=== PATIENT | female | born 1930 | race Caucasian/White ===

== ENCOUNTER 2016-09-02 12:21 | Observation (INO) | payer BC, OTHER ==
--- NOTE | 2016-09-02 12:50 | UCPHY ---
H & P Patient Type: New Chief Complaint Nursing Narrative: Congested nose,"itchy eyes and ears" x1wk has increased last 2 days as well as SOB. Pt. also c/o cough x1-1.5wks ago. Denies fever/chills Time Seen by Provider: 09/02/16 12:47 HPI/ROS: 86-year-old female presents with her daughter a retired nurse with complaints of inside itchy ears, swelling around her eyes severe nasal congestion with a history of nasal polyps, cough and shortness of breath. No fevers or chills. Review of systems As per HPI, itchy ears cold symptoms nasal congestion swelling around her eyes General no fever no chills no weakness HEENT no eye pain no eye discharge. No eye redness, positive swelling around her eyes, positive itchy ears no sore throat Respiratory positive cough, positive shortness of breath Cardiac no chest pain, no peripheral edema GI no abdominal pain, no diarrhea, no constipation, no nausea, no vomiting no flank pain, no hematuria, no dysuria Musculoskeletal no myalgias, no joint pain Heme no easy bruising, no easy bleeding Endo no polyuria, no polydipsia Skin positive rashes, positive pruritus Neuro no syncope, no dizziness, no headaches Psych is no suicidal ideation, no homicidal ideation Source: Patient, Family Exam Limitations: Clinical condition - Personal History Current Tetanus/Diphtheria Vaccine: Unsure - Medical/Surgical History Hx Asthma: Yes Hx Chronic Respiratory Disease: Yes Hx Diabetes: No Hx Cardiac Disease: Yes Hx Renal Disease: Yes Hx Cirrhosis: No Hx Alcoholism: No Hx HIV/AIDS: No Hx Splenectomy or Spleen Trauma: No Other PMH: Med hx-kidney abnormal but has not increased,htn,panceatitis,GERD. SUrg-marycarmen,bilat knees,hyst,appy - Family History Significant Family History: COPD - Social History Smoking Status: Former smoker Alcohol Use: None Drug Use: None - Physical Exam Exam: 86-year-old female alert and oriented in no acute distress nontoxic appearance, afebrile Some pursed lip breathing This saturation on 2 L nasal cannula in mid 90s Atraumatic normocephalic Extraocular muscles intact Anicteric Periorbital erythema and edema bilaterally, mild tenderness to palpation of bilateral maxillary sinuses Nares completely congested with yellowish mucus bilaterally Oropharynx-dry mucosa, mild erythema no swelling no uvular edema and no exudate Lungs wheeze left upper lobe, otherwise clear to auscultation Heart regular rate and rhythm Abdomen nondistended bowel sounds present soft Extremities no cyanosis clubbing or edema, no calf tenderness Neuro alert, no focal deficits noted Constitutional: Initial Vital Signs Temperature (C) 36.4 C 09/02/16 12:27 Heart Rate 100 09/02/16 12:27 Respiratory Rate 20 09/02/16 12:27 Blood Pressure 149/66 H 09/02/16 12:27 O2 Sat (%) 83 L 09/02/16 12:27 O2 Delivery Mode Nasal Cannula O2 (L/minute) 2 Allergies/Adverse Reactions: oxycodone HCl [From Percocet] Allergy (Severe, Verified 09/02/16 12:27) Other-Enter Comments amoxicillin [Amoxicillin] Allergy (Unknown, Verified 09/02/16 12:27) metoclopramide HCl [From Reglan] Allergy (Verified 09/02/16 12:27) Other-Enter Comments Home Medications: Medication Instructions Recorded Acetaminophen [Tylenol 8 Hour] 650 mg PO Q6H PRN 11/20/12 Albuterol [Proventil Inhaler (RX)] 1 - 2 puffs IH Q4H PRN 11/20/12 Coenzyme Q10 [Co Q-10 30 mg (OTC)] 30 mg PO HS 11/20/12 Fluticasone Nasal [Flonase Nasal 2 sprays EACH[place]ARE DAILY 11/20/12 [place] (RX)] Md Riojas 11/2011/20/12 Multivit with Calcium,Iron,Min 1 each PO DAILY 11/20/12 [Tab A Irene] Paroxetine HCl [Paxil] 20 mg PO DAILY 11/20/12 Slicer Machine Operator Completed 11/20/12 11/20/12 Carvedilol 09/02/16 Clonidine 09/02/16 Medical Decision Making - Diagnostics EKG Interpretation: EKG done at 3:39 p.m. on September 02, 2016, normal sinus rhythm, no ectopy no ischemic changes Imaging: EKG normal sinus rhythm, no ectopy no ischemic changes done at 3:39 p.m. on September 02, 2016 Chest x-ray negative for pneumonia CT sinuses positive for pansinusitis no obvious erosions ED Course/Re-evaluation: Patient seen and evaluated for multiple complaints, itchy ears, swelling around her eyes , cold symptoms difficulty breathing through her nose, shortness of breath, cough. Initial room air saturation was in the low 80s, improved to low 90s to mid 90s on 2 L nasal cannula. She uses home oxygen 1.5 L nasal cannula while she sleeps. Patient was given a DuoNeb and Solu-Medrol 125 mg additionally she was given famotidine 20 mg( for possible allergic component). ER studies CT scan sinuses positive for pansinusitis Chest x-ray negative, no pneumonia CBC within normal limits INR normal Creatinine at baseline 1.6 with GFR 30 Influenza negative Rapid strep negative D-dimer 4.61 Patient with shortness of breath likely multifactorial in origin, patient with a history of COPD, given nebulizer and Solu-Medrol with improvement in wheezing. Patient also with a history of significant nasal congestion and pansinusitis may be contributing to his sensation of shortness of breath. However patient has an elevated D-dimer of 4.61 has limited mobility and will need to have a pulmonary embolus ruled out as a possible contributing factor to her shortness of breath. She is unable to get a CT scan with contrast secondary to her baseline creatinine of 1.6 with a GFR of 30. I discussed this case with Dr. Hunt at [facility] ER She will go to [facility] to have a V/Q scan if they are unable to get a V/Q scan today she might need to be admitted for observation and have a V/Q scan tomorrow. 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5-13.0) Eos % (Auto) 3.2 % (0.6-7.6) Baso % (Auto) 0.4 % (0.3-1.7) Nucleat RBC Rel Count 0.0 % (0.0-0.2) Absolute Neuts (auto) 6.26 10^3/uL (1.70-6.50) Absolute Lymphs (auto) 1.28 10^3/uL (1.00-3.00) Absolute Monos (auto) 0.51 10^3/uL (0.30-0.80) Absolute Eos (auto) 0.27 10^3/uL (0.03-0.40) Absolute Basos (auto) 0.03 10^3/uL (0.02-0.10) Absolute Nucleated RBC 0.00 10^3/uL (0-0.01) Immature Gran % 0.5 % (0.0-1.1) Immature Gran # 0.04 10^3/uL (0.00-0.10) PT 13.7 SEC (12.0-15.0) INR 1.07 (0.83-1.16) APTT 38.8 H SEC (23.0-38.0) D-Dimer 4.61 H ug/mLFEU (0.00-0.50) Sodium 131 L mEq/L (134-144) Potassium 4.2 mEq/L (3.5-5.2) Chloride 99 mEq/L (97-110) Carbon Dioxide 23 mEq/l (22-31) Anion Gap 9 mEq/L (8-16) BUN 20 mg/dL (7-23) Creatinine 1.6 H mg/dL (0.6-1.0) Estimated GFR 30 Glucose 144 H mg/dL (70-100) Calcium 9.3 mg/dL (8.5-10.4) Total Bilirubin 0.9 mg/dL (0.1-1.4) AST 25 IU/L (14-46) ALT 21 IU/L (9-52) Alkaline Phosphatase 63 IU/L (38-126) Troponin I 0.016 ng/mL (0-0.034) Total Protein 5.5 L g/dL (6.3-8.2) Albumin 3.1 L g/dL (3.5-5.0) Influenza Typ A,B (DFA) NEGATIVE FOR FLU (NEGATIVE) Group A Strep Screen NEGATIVE (NEGATIVE) Group A Strep DNA Pending Medications Given: Discontinued Medications Albuterol/Ipratropium (Duoneb) 3 ml IH EDNOW ONE Stop: 09/02/16 13:21 Last Admin: 09/02/16 13:39 Dose: 3 ml Famotidine (Pepcid) 20 mg IVP EDNOW ONE Stop: 09/02/16 13:39 Last Admin: 09/02/16 13:40 Dose: 20 mg Methylprednisolone Sodium Succinate (Solu-Medrol) 125 mg IVP EDNOW ONE Stop: 09/02/16 13:22 Last Admin: 09/02/16 13:39 Dose: 125 mg Departure - Departure Disposition: [facility] ER Clinical Impression: COPD exacerbation, Acute pansinusitis, Positive D-dimer, Hypertension Condition: Good Referrals: Betty Hanks MD [Primary Care Provider] - As per Instructions - PQRS PQRS Measurement: 134: Depression screening and followup, PRIME MD-PHQ2 (12 years and older) Over the last 2 weeks, how often have you been bothered by any of the following problems? 1. Feeling down, depressed, or hopeless? 2. Little interest or pleasure in doing things? Patient answered no to both 1 and 2 130: Documentation of medications. Reviewed all patient medications, doses, route and frequency. 226: Do you smoke? No. 47: 65 and older: Advanced care planning. Patient designates surrogate decision maker as spouse.. [Patient has advanced directive.] 51: 18 years old and older with diagnosis of COPD, spirometry performance. Patient with history of COPD, spirometry not available 52: 18 years old and older with COPD and symptoms of COPD or FEV1<60% predicted prescribed a B Agonist. [Spirometry not performed; equipment not available.]
[2016-09-02] MEDS ORDERED: IPRATROPIUM/ALBUTEROL 3 ML DEYVIAL IH ONE (13:20)
[2016-09-02] MEDS ORDERED: methylPREDNISolone SOD SUCC 125 MG/2 ML VIAL IVP ONE (13:21)
[2016-09-02] MEDS ORDERED: FAMOTIDINE 20 MG/2 ML SDV IVP ONE (13:38)
[2016-09-02 13:44] LABS: % IMMATURE GRANULYOCYTES 0.5 % (0.0-1.1); ABSOLUTE IMMATURE GRANULOCYTES 0.04 10^3/uL (0.00-0.10); ADD DIFF? NO; ADD MORPH? NO; ADD SCAN? NO; ATYPICAL LYMPHOCYTE FLAG 0 (0-99); FRAGMENT RBC FLAG 0 (0-99); HEMOGLOBIN 13.7 g/dL (12.6-16.3); LEFT SHIFT FLG 0 (0-99); LIPEMIA HEMOLYSIS FLAG 90 (0-99); MEAN CELL HEMOGLOBIN 31.1 pg (27.9-34.1); MEAN CELL HEMOGLOBIN CONCENTR. 34.3 g/dL (32.4-36.7); MEAN CELL VOLUME 90.9 fL (81.5-99.8); PLATELET CLUMPS FLAG 0 (0-99); PLATELET COUNT 158 10^3/uL (150-400); RED CELL DISTRIBUTION WIDTH 13.6 % (11.5-15.2)
[2016-09-02 13:56] LABS: INR 1.07 (0.83-1.16); PROTIME(PATIENT) 13.7 SEC (12.0-15.0)
[2016-09-02 13:57] LABS: APTT 38.8 SEC (23.0-38.0)
[2016-09-02 14:06] LABS: ALBUMIN 3.1 g/dL (3.5-5.0); BILIRUBIN,TOTAL 0.9 mg/dL (0.1-1.4); CALCIUM 9.3 mg/dL (8.5-10.4); CREATININE 1.6 mg/dL (0.6-1.0); POTASSIUM 4.2 mEq/L (3.5-5.2); TOTAL PROTEIN 5.5 g/dL (6.3-8.2)
[2016-09-02 14:12] LABS: TROPONIN I 0.016 ng/mL (0-0.034)
--- NOTE | 2016-09-02 14:53 | DX ---
Chest PA and lateral HISTORY: Cough. FINDINGS: Compare 2013 and 2009. Heart size is normal. Lungs are free of infiltrate. No pleural effus ion. No pneumothorax. No thoracic vertebral compression fracture. Fusion hardware is partially glimps ed in the lower lumbar spine. IMPRESSION: No acute cardiopulmonary features. Negative for pneumonia.
--- NOTE | 2016-09-02 15:27 | CT ---
Unenhanced CT Scan of the Paranasal Sinuses Clinical history: 86-year-old female with bilateral eye swelling, a cough, and congestion for one wee k with known nasal polyps. TECHNIQUE: A multidetector unenhanced helical CT scan was obtained from the level of the frontal sinu ses caudally to the maxillary alveolar ridge, with images reformatted at 2.50 and 0.63 mm increments, and reviewed at a variety of window and level settings. Parasagittal and paracoronal reconstructed i mages are reviewed on the workstation. The DFOV is 17.2 cm. A dose reduction protocol was used. COMPARISON STUDY: None. FINDINGS: There is complete opacification of the frontal, ethmoid, and maxillary sinuses, with near-c omplete opacification of the sphenoid sinuses. There is no convincing osseous erosion. There is near- complete nasal turbinate congestion with some inferior nasal cavity mucosal thickening. The nasal sep blanquita remains midline. The mastoids still remain patent. Each globe is intact, and the retrobulbar intr a- and extraconal fat appear normal. There is mural atherosclerotic calcification of the cavernous ca rotid arteries. IMPRESSION: Severe pansinusitis. Results were discussed with Dr. Melissa Corrales. A Document Only message has been documented for Melissa Corrales MD in the [facility] Result system on 09/02/2016 15:00, Message ID [id number].
--- NOTE | 2016-09-02 15:41 | CPEKG ---
Heart Rate: 79 RR Interval: 759 P-R Interval: 196 QRSD Interval: 88 QT Interval: 384 QTC Interval: 441 P [place]: 49 QRS [place]: 9 T Wave [place]: 52 EKG Severity - NORMAL ECG - EKG Impression: SINUS RHYTHM Electronically Signed By: Shilo Marie 04-Sep-2016 13:11:09
--- NOTE | 2016-09-02 17:18 | EDPHY ---
H & P Time Seen by Provider: 09/02/16 12:47 - Personal History Current Tetanus/Diphtheria Vaccine: Unsure - Medical/Surgical History Hx Asthma: Yes Hx Chronic Respiratory Disease: Yes Hx Diabetes: No Hx Cardiac Disease: Yes Hx Renal Disease: Yes Hx Cirrhosis: No Hx Alcoholism: No Hx HIV/AIDS: No Hx Splenectomy or Spleen Trauma: No Other PMH: Med hx-kidney abnormal but has not increased,htn,panceatitis,GERD. SUrg-marycarmen,bilat knees,hyst,appy - Family History Significant Family History: COPD - Social History Smoking Status: Former smoker Constitutional: Initial Vital Signs Temperature (C) 36.4 C 09/02/16 12:27 Heart Rate 100 09/02/16 12:27 Respiratory Rate 20 09/02/16 12:27 Blood Pressure 149/66 H 09/02/16 12:27 O2 Sat (%) 83 L 09/02/16 12:27 O2 Delivery Mode Room Air O2 (L/minute) 2 Allergies/Adverse Reactions: oxycodone HCl [From Percocet] Allergy (Severe, Verified 09/02/16 12:27) Other-Enter Comments amoxicillin [Amoxicillin] Allergy (Unknown, Verified 09/02/16 12:27) metoclopramide HCl [From Reglan] Allergy (Verified 09/02/16 12:27) Other-Enter Comments Home Medications: Medication Instructions Recorded Acetaminophen [Tylenol 8 Hour] 650 mg PO Q6H PRN 11/20/12 Albuterol [Proventil Inhaler (RX)] 1 - 2 puffs IH Q4H PRN 11/20/12 Coenzyme Q10 [Co Q-10 30 mg (OTC)] 30 mg PO HS 11/20/12 Fluticasone Nasal [Flonase Nasal 2 sprays EACHNARE DAILY 11/20/12 [place] (RX)] Md Riojas 11/2011/20/12 Multivit with Calcium,Iron,Min 1 each PO DAILY 11/20/12 [Tab A Irene] Paroxetine HCl [Paxil] 20 mg PO DAILY 11/20/12 Physicians And Surgeons Completed 11/20/12 11/20/12 Carvedilol 09/02/16 Clonidine 09/02/16 Medical Decision Making ED Course/Re-evaluation: CHIEF COMPLAINT: Sent from [facility] [place]. HISTORY OF PRESENT ILLNESS: The patient is an 86 year old female sent here from [facility] with chest pain and shortness of breath. The patient had an elevated d- dimer and elevated creatinine. She was sent here to have a VQ scan. REVIEW OF SYSTEMS: Constitutional: No fever, no chills or rigors, no recent illness. Eyes: No visual changes. ENT: No sore throat, no difficulty swallowing, no swollen glands. Respiratory: No cough, no shortness of breath. Cardiac: No chest pain. Gastrointestinal: No nausea, vomiting, or diarrhea, no abdominal pain, no black stools Genitourinary: No hematuria, no problems urinating. Musculoskeletal: No calf or leg pain, no neck or back pain, no leg or ankle swelling. Skin: No rashes. Neurological: No headache, no tingling in hands or feet, no muscle spasms. Psychiatric: No anxiety or depression. PHYSICAL EXAM: General Appearance: Alert, well hydrated, appropriate, and non-toxic appearing. Head: Atraumatic without scalp tenderness or obvious injury Eyes: Pupils equal, round, reactive to light and accommodation, EOMI, no trauma , no injection. Ears: Clear bilaterally, no perforation, normal landmarks Nose: Atraumatic, no rhinorrhea, clear. Throat: There is no erythema or exudates, no lesions, normal tonsils, mucus membranes moist. Neck: Supple, 2+ carotid upstroke, non-tender, no lymphadenopathy. Respiratory: No retractions, no distress, no wheezes, and no accessory muscle use. Lungs are clear to auscultation bilaterally. Cardiovascular: Regular rate and rhythm, no murmurs, rubs, or gallops. Bilateral carotid, radial, dorsalis pedis, and posterior tibial pulses intact. Good capillary refill all extremities. Gastrointestinal: Abdomen is soft, non-tender, non-distended, no masses, no rebound, no guarding, no peritoneal signs. Musculoskeletal: Normal active ROM of all extremities, atraumatic. Neurological: Alert, appropriate, and interactive. The patient has normal DTRs and non-focal cranial nerves, motor, sensory, and cerebellar exam. Skin: No rashes, good turgor, no nodules on palpation. MEDICAL DECISION MAKING: The patient was sent here from [facility] with chest pain and shortness of breath. She had an elevated d-dimer of 4.6 and creatinine of 1.6. I discussed with Dr. Corrales, although she is requesting a VQ todd there is no VQ scan available and therefore will admit the patient to the hospitalist. The patient will be admitted to Dr. Poole with VQ scan scheduled for tomorrow morning. - Data Points Laboratory Results: Laboratory Results 09/02/16 13:40 09/02/16 13:40 09/02/16 09/02/16 09/02/16 Unknown 14:28 13:40 WBC 8.39 10^3/uL (3.80-9.50) RBC 4.40 10^6/uL (4.18-5.33) Hgb 13.7 g/dL (12.6-16.3) Hct 40.0 % (38.0-47.0) MCV 90.9 fL (81.5-99.8) MCH 31.1 pg (27.9-34.1) MCHC 34.3 g/dL (32.4-36.7) RDW 13.6 % (11.5-15.2) Plt Count 158 10^3/uL (150-400) MPV 9.0 fL (8.7-11.7) Neut % (Auto) 74.5 H % (39.3-74.2) Lymph % (Auto) 15.3 % (15.0-45.0) [place] % (Auto) 6.1 % (4.5-13.0) Eos % (Auto) 3.2 % (0.6-7.6) Baso % (Auto) 0.4 % (0.3-1.7) Nucleat RBC Rel Count 0.0 % (0.0-0.2) Absolute Neuts (auto) 6.26 10^3/uL (1.70-6.50) Absolute Lymphs (auto) 1.28 10^3/uL (1.00-3.00) Absolute Monos (auto) 0.51 10^3/uL (0.30-0.80) Absolute Eos (auto) 0.27 10^3/uL (0.03-0.40) Absolute Basos (auto) 0.03 10^3/uL (0.02-0.10) Absolute Nucleated RBC 0.00 10^3/uL (0-0.01) Immature Gran % 0.5 % (0.0-1.1) Immature Gran # 0.04 10^3/uL (0.00-0.10) PT 13.7 SEC (12.0-15.0) INR 1.07 (0.83-1.16) APTT 38.8 H SEC (23.0-38.0) D-Dimer 4.61 H ug/mLFEU (0.00-0.50) Sodium 131 L mEq/L (134-144) Potassium 4.2 mEq/L (3.5-5.2) Chloride 99 mEq/L (97-110) Carbon Dioxide 23 mEq/l (22-31) Anion Gap 9 mEq/L (8-16) BUN 20 mg/dL (7-23) Creatinine 1.6 H mg/dL (0.6-1.0) Estimated GFR 30 Glucose 144 H mg/dL (70-100) Calcium 9.3 mg/dL (8.5-10.4) Total Bilirubin 0.9 mg/dL (0.1-1.4) AST 25 IU/L (14-46) ALT 21 IU/L (9-52) Alkaline Phosphatase 63 IU/L (38-126) Troponin I 0.016 ng/mL (0-0.034) Total Protein 5.5 L g/dL (6.3-8.2) Albumin 3.1 L g/dL (3.5-5.0) Influenza Typ A,B (DFA) NEGATIVE FOR FLU (NEGATIVE) Group A Strep Screen NEGATIVE (NEGATIVE) Group A Strep DNA Pending Medications Given: Discontinued Medications Albuterol/Ipratropium (Duoneb) 3 ml IH EDNOW ONE Stop: 09/02/16 13:21 Last Admin: 09/02/16 13:39 Dose: 3 ml Famotidine (Pepcid) 20 mg IVP EDNOW ONE Stop: 09/02/16 13:39 Last Admin: 09/02/16 13:40 Dose: 20 mg Methylprednisolone Sodium Succinate (Solu-Medrol) 125 mg IVP EDNOW ONE Stop: 09/02/16 13:22 Last Admin: 09/02/16 13:39 Dose: 125 mg Departure - Departure Disposition: [facility] Clinical Impression: Shortness of breath Condition: Good Referrals: Betty Hanks MD [Primary Care Provider] - As per Instructions Report Scribed for: Seymour Hunt Report Scribed by: Jenni Lind Date of Report: 09/02/16 Time of Report: 17:22
[2016-09-02] MEDS ORDERED: ONDANSETRON 4 MG/2 ML VIAL IVP PRN (17:38)
[2016-09-02] MEDS ORDERED: ACETAMINOPHEN 325 MG TAB PO PRN (17:38)
[2016-09-02] MEDS ORDERED: ONDANSETRON DISINTEGRATING 4 MG TAB PO PRN (17:38)
[2016-09-02] MEDS ORDERED: ALBUTEROL 3 ML DEYVIAL IH PRN (17:38)
[2016-09-02] MEDS ORDERED: NS 1,000 ML IV SCH (17:45)
[2016-09-02] MEDS ORDERED: ALBUTEROL 60 PUFFS/8 GM MDI IH PRN (19:56)
[2016-09-02] MEDS ORDERED: diphenhydrAMINE 25 MG CAP PO PRN (19:56)
[2016-09-02] MEDS: IPRATROPIUM/ALBUTEROL 3 ML DEYVIAL IH SCH ×2 (20:34→21:43)
[2016-09-02] MEDS ORDERED: traZODone 100 MG TAB PO SCH (21:00)
[2016-09-02] MEDS ORDERED: ATORVASTATIN CALCIUM 20 MG TAB PO SCH (21:00)
[2016-09-02] MEDS ORDERED: TIOTROPIUM INHALER 18 MCG/DOSE 5 DOSE/MDI IH SCH (21:00)
[2016-09-02] MEDS ORDERED: ZOLPIDEM TARTRATE 5 MG TAB PO SCH (21:00)
[2016-09-02] MEDS: CARVEDILOL 3.125 MG TAB PO SCH (21:21)
[2016-09-02] MEDS ORDERED: HEPARIN 5,000 UNIT/0.5 ML SYR SC SCH (22:00)
[2016-09-02] MEDS: FLUTICASONE/SALMETER 100/50MCG DISKUS IH SCH (22:17)
--- NOTE | 2016-09-02 22:30 | PDGENHP ---
History and Physical - Chief Complaint Acute shortness of breath - History of Present Illness HPI: 86-year-old female presenting with acute shortness of breath characterized as getting easily winded with associated sinus congestion, nonproductive cough, pruritus of her eyes and ears. Onset of symptoms was approximately 1 week ago, and duration has been persistent and worsening over the most recent past 2 days. Patient reports that her similar is are similar in character to her chronic sinusitis which is generally treated with a prednisone 20 mg daily as well as ciprofloxacin. The patient her family reports that her sinus infections are secondary to her chronic nasal polyps which are almost completely obstructive. The patient's ear nose and throat physician has advised her not to undergo surgery given her significant surgical risks at her age. The patient reports that her shortness of breath is usually alleviated by supplemental oxygen which she regularly wears at night, but in the setting of her sinus congestion, the patient does not believe that her nasal cannula oxygen is affectively working. She otherwise denies any overt chest pain, denies any lower extremity edema, denies any nausea vomiting or diarrhea. She has otherwise been taking all of her home medications, but she has not been initiated on steroids or antibiotics yet. History Information - Allergies/Home Medication List Allergies/Adverse Reactions: oxycodone HCl [From Percocet] Allergy (Severe, Verified 09/02/16 18:08) Other-Enter Comments amoxicillin [Amoxicillin] Allergy (Unknown, Verified 09/02/16 18:08) acetaminophen [From Percocet] Allergy (Verified 09/02/16 22:10) Other-Enter Comments metoclopramide HCl [From Reglan] Allergy (Verified 09/02/16 12:27) Other-Enter Comments Home Medications: Albuterol [Proventil Inhaler (RX)] 1 - 2 puffs IH Q4H PRN 11/20/12 [Last Taken Unknown] Fluticasone Nasal [Flonase Nasal [place] (RX)] 2 sprays EACHNARE DAILY 11/20/12 [ Last Taken 09/01/16] Paroxetine HCl [Paxil] 20 mg PO DAILY 11/20/12 [Last Taken 09/01/16] Atorvastatin Calcium [Lipitor 20 mg (*)] 20 mg PO HS 09/02/16 [Last Taken ] Carvedilol [Coreg (*)] 3.125 mg PO BIDMEAL 09/02/16 [Last Taken 09/01/16] Fluticasone/Salmeter 100/50Mcg [Advair 100/50 (*)] 1 puffs IH BID 09/02/16 [ Last Taken 09/02/16] Omeprazole 20 mg PO DAILY 09/02/16 [Last Taken 09/01/16] Tiotropium Inhaler [Spiriva Handihaler] 18 mcg IH HS 09/02/16 [Last Taken ] Zolpidem Tartrate [Ambien 5MG (*)] 5 mg PO HS 09/02/16 [Last Taken 09/01/16] clonIDINE [Catapres (*)] 0.05 mg PO HS 09/02/16 [Last Taken 09/01/16] clonIDINE [Catapres (*)] 0.1 mg PO DAILY@17 09/02/16 [Last Taken 09/01/16] diphenhydrAMINE [Benadryl 25 MG (*)] 25 mg PO DAILY PRN 09/02/16 [Last Taken Unknown] traZODone [traZODONE 50MG (*)] 50 mg PO HS 09/02/16 [Last Taken 09/01/16] I have personally reviewed and updated: family history, medical history, social history, surgical history - Past Medical History COPD (With nocturnal oxygen), CVA (Without residual deficits), GERD, hypertension Additional medical history: Nasal polyps with chronic sinusitis (most recently pseudomonal); chronic kidney disease stage 3 with baseline creatinine 1.2 - Surgical History Reports: appendectomy, cholecystectomy, hysterectomy Additional surgical history: Bilateral knee surgery - Family History Additional family history: No recent sick family contacts, no family history of venous thromboembolism, patient does have a family history of CVA - Social History Smoking Status: Former smoker Alcohol Use: None (History of significant use) Drug Use: None Additional social history: Normally independent in her ADLs Review of Systems ROS: 10pt was reviewed & negative except for what was stated in HPI & below EENMT: Reports: other (Sinus congestion) Respiratory: Reports: cough, shortness of breath Physical Exam Temp Pulse Resp BP Pulse Ox 36.7 C 94 20 161/110 H 95 09/02/16 20:00 09/02/16 21:43 09/02/16 21:43 09/02/16 20:00 09/02/16 21:43 O2 (L/minute) 2 Constitutional: no apparent distress, appears nourished, not in pain, No uncomfortable Eyes: PERRL, anicteric sclera, EOMI Ears, Nose, Mouth, Throat: moist mucous membranes, hearing normal, other (Sinus tenderness to palpation) Cardiovascular: systolic murmur (2/6 systolic murmur at the sternum and apex), No irregularly irregular, No tachycardia, No edema Respiratory: no respiratory distress, no rales or rhonchi, clear to auscultation Gastrointestinal: normoactive bowel sounds, soft, non-tender abdomen, no palpable masses Genitourinary: no bladder fullness, no bladder tenderness Skin: warm, normal color, no rashes or abrasions, no fluctuance, no induration, No mottled Neurologic: AAOx3, sensation intact bilaterally, No weakness Psychiatric: interacting appropriately, not anxious, not encephalopathic, thought process linear Lab Data & Imaging Review 09/02/16 13:40 09/02/16 13:40 WBC 8.39 10^3/uL (3.80-9.50) 09/02/16 13:40 RBC 4.40 10^6/uL (4.18-5.33) 09/02/16 13:40 Hgb 13.7 g/dL (12.6-16.3) 09/02/16 13:40 Hct 40.0 % (38.0-47.0) 09/02/16 13:40 MCV 90.9 fL (81.5-99.8) 09/02/16 13:40 MCH 31.1 pg (27.9-34.1) 09/02/16 13:40 MCHC 34.3 g/dL (32.4-36.7) 09/02/16 13:40 RDW 13.6 % (11.5-15.2) 09/02/16 13:40 Plt Count 158 10^3/uL (150-400) 09/02/16 13:40 MPV 9.0 fL (8.7-11.7) 09/02/16 13:40 Neut % (Auto) 74.5 % (39.3-74.2) H 09/02/16 13:40 Lymph % (Auto) 15.3 % (15.0-45.0) 09/02/16 13:40 [place] % (Auto) 6.1 % (4.5-13.0) 09/02/16 13:40 Eos % (Auto) 3.2 % (0.6-7.6) 09/02/16 13:40 Baso % (Auto) 0.4 % (0.3-1.7) 09/02/16 13:40 Nucleat RBC Rel Count 0.0 % (0.0-0.2) 09/02/16 13:40 Absolute Neuts (auto) 6.26 10^3/uL (1.70-6.50) 09/02/16 13:40 Absolute Lymphs (auto) 1.28 10^3/uL (1.00-3.00) 09/02/16 13:40 Absolute Monos (auto) 0.51 10^3/uL (0.30-0.80) 09/02/16 13:40 Absolute Eos (auto) 0.27 10^3/uL (0.03-0.40) 09/02/16 13:40 Absolute Basos (auto) 0.03 10^3/uL (0.02-0.10) 09/02/16 13:40 Absolute Nucleated RBC 0.00 10^3/uL (0-0.01) 09/02/16 13:40 Immature Gran % 0.5 % (0.0-1.1) 09/02/16 13:40 Immature Gran # 0.04 10^3/uL (0.00-0.10) 09/02/16 13:40 PT 13.7 SEC (12.0-15.0) 09/02/16 13:40 INR 1.07 (0.83-1.16) 09/02/16 13:40 APTT 38.8 SEC (23.0-38.0) H 09/02/16 13:40 D-Dimer 4.61 ug/mLFEU (0.00-0.50) H 09/02/16 13:40 Sodium 131 mEq/L (134-144) L 09/02/16 13:40 Potassium 4.2 mEq/L (3.5-5.2) 09/02/16 13:40 Chloride 99 mEq/L (97-110) 09/02/16 13:40 Carbon Dioxide 23 mEq/l (22-31) 09/02/16 13:40 Anion Gap 9 mEq/L (8-16) 09/02/16 13:40 BUN 20 mg/dL (7-23) 09/02/16 13:40 Creatinine 1.6 mg/dL (0.6-1.0) H 09/02/16 13:40 Estimated GFR 30 09/02/16 13:40 Glucose 144 mg/dL (70-100) H 09/02/16 13:40 Calcium 9.3 mg/dL (8.5-10.4) 09/02/16 13:40 Total Bilirubin 0.9 mg/dL (0.1-1.4) 09/02/16 13:40 AST 25 IU/L (14-46) 09/02/16 13:40 ALT 21 IU/L (9-52) 09/02/16 13:40 Alkaline Phosphatase 63 IU/L (38-126) 09/02/16 13:40 Troponin I 0.016 ng/mL (0-0.034) 09/02/16 13:40 Total Protein 5.5 g/dL (6.3-8.2) L 09/02/16 13:40 Albumin 3.1 g/dL (3.5-5.0) L 09/02/16 13:40 Influenza Typ A,B (DFA) NEGATIVE FOR FLU (NEGATIVE) 09/02/16 13:40 Group A Strep Screen NEGATIVE (NEGATIVE) 09/02/16 14:28 Visualized and Interpreted Chest x-ray results: Yes Chest X-Ray results: normal (No focal airspace disease, somewhat hyperinflated) Visualized and Interpreted EKG results: Yes EKG Interpretation: Positive for: other (Q-waves in lead 3 with normal sinus rhythm) Assessment & Plan Assessment: 86-year-old female presents with acute sinusitis and hypoxia Plan: 1. Sinusitis. Acute, symptoms are consistent with her chronic intermittent sinusitis which most likely has an infectious bacterial component given her positive pseudomonal cultures from June of 2016, in the setting of chronic nasal polyps -will initiate patient's regular course of medications including prednisone 20 mg, ciprofloxacin 250 mg twice daily -pansinusitis noted on head CT 2. Acute shortness of breath. New problem this provider, further workup indicated. Patient with exertional shortness of breath and concomitant hypoxia notably an SpO2 of 83% on room air -suspect that patient's hypoxia is secondary to hypoventilation in her setting of acute illness as well as poor oxygen delivery via nasal cannula in the setting of nasal polyps -that being said, the patient does have an elevated D-dimer as well as pulmonary symptoms and ruling her out for venous thromboembolism is prudent -given her elevated serum creatinine level, we will pursue a V/Q scan -continue supplemental oxygen, patient may require more continuous oxygen at home moving 4 -recommend incentive spirometer -continue monitor on telemetry unit until V/Q scan has been performed given the possibility of pulmonary embolism 3. JOHNNY on Chronic kidney disease stage 3. Baseline creatinine is 1.2, most likely 2/2 hypovolemia in setting of infxn -NS and repeat Cr in AM 4. Hyponatremia. Acute, most likely secondary to hypovolemia, provide normal saline and repeat in a.m. 5. Hypertension. Chronic, continue patient's home medications Diet. Regular diet Prophylaxis. High risk patient, pharmacologic prophylaxis contraindicated in the setting of significantly elevated blood pressure, SCDs Code status. DNR per patient, daughter MPOA Disposition. Anticipated discharge is 09/03/2016, pending further workup obtained as outlined above, patient has stabilized. I have discussed patient's presentation with Dr. Hunt, he has recommended observation overnight until V/Q scan as can be obtained as outlined above.
[2016-09-03 04:58] LABS: % IMMATURE GRANULYOCYTES 0.4 % (0.0-1.1); ABSOLUTE IMMATURE GRANULOCYTES 0.02 10^3/uL (0.00-0.10); ADD DIFF? NO; ADD MORPH? NO; ADD SCAN? NO; ATYPICAL LYMPHOCYTE FLAG 0 (0-99); FRAGMENT RBC FLAG 0 (0-99); HEMATOCRIT 35.7 % (38.0-47.0); HEMOGLOBIN 12.6 g/dL (12.6-16.3); LEFT SHIFT FLG 0 (0-99); LIPEMIA HEMOLYSIS FLAG 90 (0-99); MEAN CELL HEMOGLOBIN 31.6 pg (27.9-34.1); MEAN CELL HEMOGLOBIN CONCENTR. 35.3 g/dL (32.4-36.7); MEAN CELL VOLUME 89.5 fL (81.5-99.8); MEAN PLATELET VOLUME 9.2 fL (8.7-11.7); PLATELET CLUMPS FLAG 0 (0-99); PLATELET COUNT 147 10^3/uL (150-400); RED BLOOD CELL COUNT 3.99 10^6/uL (4.18-5.33); RED CELL DISTRIBUTION WIDTH 13.2 % (11.5-15.2)
[2016-09-03 05:32] LABS: ALANINE AMINOTRANSFERASE 29 IU/L (9-52); ALBUMIN 2.9 g/dL (3.5-5.0); ALKALINE PHOSPHATASE 60 IU/L (38-126); ANION GAP 8 mEq/L (8-16); ASPARTATE AMINOTRANSFERASE 26 IU/L (14-46); BILIRUBIN,TOTAL 0.5 mg/dL (0.1-1.4); CALCIUM 9.3 mg/dL (8.5-10.4); CARBON DIOXIDE 25 mEq/l (22-31); CHLORIDE 101 mEq/L (97-110); CREATININE 1.4 mg/dL (0.6-1.0); GLOMERULAR FILTRATION RATE 36; GLUCOSE 109 mg/dL (70-100); POTASSIUM 4.9 mEq/L (3.5-5.2); SODIUM 134 mEq/L (134-144); TOTAL PROTEIN 5.4 g/dL (6.3-8.2)
[2016-09-03 05:40] LABS: TROPONIN I 0.013 ng/mL (0-0.034)
[2016-09-03] MEDS: IPRATROPIUM/ALBUTEROL 3 ML DEYVIAL IH SCH ×2 (05:53→11:31)
[2016-09-03 08:32] VITALS: TEMP 97.6
[2016-09-03] MEDS: CARVEDILOL 3.125 MG TAB PO SCH (08:37)
[2016-09-03] MEDS: FLUTICASONE/SALMETER 100/50MCG DISKUS IH SCH (08:42)
[2016-09-03] MEDS ORDERED: FLUTICASONE NASAL 120 SPRAYS/16 GM MDI EACHNARE SCH (09:00)
[2016-09-03] MEDS ORDERED: PARoxetine HCL 20 MG TAB PO SCH (09:00)
[2016-09-03] MEDS ORDERED: PANTOPRAZOLE SODIUM 40 MG TAB PO SCH (09:00)
[2016-09-03] MEDS ORDERED: predniSONE 20 MG TAB PO SCH (09:00)
[2016-09-03] MEDS ORDERED: CIPROFLOXACIN 250 MG TAB PO SCH (10:00)
--- NOTE | 2016-09-03 11:38 | NM ---
Nuclear Medicine Ventilation/Perfusion Lung Scan Indications: Hypoxia, elevated d-dimer, acute renal insufficiency. Comparison: PA and lateral chest September 02, 2016. Technique: Ventilation imaging was performed with 19.9 mCi of 133 xenon, administered by inhalation. Single-breath, equilibrium, and washout phases were imaged. Perfusion imaging was performed with 5 .1 mCi of technetium 99m MAA injected intravenously. Perfusion images were acquired in multiple proj ections. Findings: There are 2 small perfusion defects in the posterior segment of the right upper lobe. Patch y air trapping is present bilaterally. Impression: 1. Low probability for pulmonary embolus. 2. Patchy air trapping suggesting COPD/emphysema.
[2016-09-03 14:24] VITALS: BP 190/90; PULSE 82; RESP 13; O2SAT 92
--- NOTE | 2016-09-03 23:51 | GDS ---
[f rep st] DISCHARGE SUMMARY DISCHARGE DIAGNOSES: 1. Acute hypoxemia. 2. Chronic obstructive pulmonary disease. 3. Acute on chronic sinusitis. 4. Chronic kidney disease. Creatinine 1.4. HISTORY: The patient is an 86-year-old female who presented to urgent care complaining of sinusitis symptoms. She was noted to be significantly hypoxemic on her initial vital signs. She did have some increasing shortness of breath as of late. Her main complaint however was worsening sinusitis consi stent with her previous attacks and she does have known chronic nasal polyps which are almost complet margarita obstructive. Her ENT has advised her not to undergo surgery due to her advanced age. Her typica l regimen for sinusitis is prednisone and ciprofloxacin. Prior to admission she was only wearing her oxygen at night but she does have a known history of COPD and has an extensive history of smoking. She was admitted to the hospital and chest x-ray was unremarkable. There was concern for possible pu lmonary embolus and so a VQ scan was performed that was low probability. My suspicion is that she rodriguez s been hypoxic for quite some time and there is likely an element of chronic respiratory failure due to her COPD. She was arranged for home oxygen and advised to take this 24/7. I have a high suspicio n that she may need 24/7 oxygen indefinitely. Regarding her sinusitis, she was initiated on prednisone and ciprofloxacin and did have improvement o f symptoms. She was given prescriptions for these medications to complete a course of therapy. DISCHARGE MEDICATIONS: Please see computer record for full detailed list. NEW MEDICATIONS: 1. Ciprofloxacin 250 mg p.o. twice daily for 14 days. 2. Prednisone 20 mg p.o. daily for 7 days. ADDITIONAL DISCHARGE INSTRUCTIONS: Home oxygen 24/7 which may need to be chronic depending on outpat ient pulse oximetry results. Patient was seen and examined by me on the day of discharge. /[id number]/MODL
== END 2016-09-03 17:06 | disposition home health service (06) ==
LOC: CED 12:21 → F2W 17:59
PROVIDERS: ADMIT Internal Medicine; ATTEND Internal Medicine
DX: R09.02 Hypoxemia (principal); J44.9 Chronic obstructive pulmonary disease, unspecified; J01.40 Acute pansinusitis, unspecified; N18.9 Chronic kidney disease, unspecified; J33.9 Nasal polyp, unspecified; I12.9 Hypertensive chronic kidney disease with stage 1 through stage 4 chronic kidney disease, or unspecified chronic kidney disease; Z87.891 Personal history of nicotine dependence; K21.9 Gastro-esophageal reflux disease without esophagitis
CPT/HCPCS: 70486; 71020; 78582; 93005; 96374; 96375; 97161; 97165; 99285; A9540; A9558; G0378; G0463; G8978; G8979; G8987; G8988; 80053-PO; 84484-PO; 85025-PO; 85378-PO; 85610-PO; 85730-PO; 87400-PO; 87880-PO